=== PATIENT | female | born 1995 | race African-American/Black ===

== ENCOUNTER 2019-10-31 21:09 | Inpatient (IN) | payer SELFPAY ==
[~2019-10-31] VITALS: Ht 157.5 cm; Wt 57.6 kg
[2019-10-31 21:25] VITALS: BP 128/78
[2019-10-31 21:45] LABS: BASOPHILS % (AUTO) 1.3 % (0.0-2.0); HEMATOCRIT 48.3 % (37.0-47.0); HEMOGLOBIN 15.4 G/DL (12.0-16.0); LYMPHOCYTES % (AUTO) 5.9 % (20.0-45.0); MEAN CORPUSCULAR VOLUME 104 FL (80-99); NEUTROPHILS % (AUTO) 88.9 % (45.0-75.0); PLATELET COUNT 251 K/UL (150-450); RED BLOOD COUNT 4.65 M/UL (4.20-5.40); RED CELL DISTRIBUTION WIDTH 10.3 % (11.6-14.8); WHITE BLOOD COUNT 14.4 K/UL (4.8-10.8)
[2019-10-31 21:51] LABS: ANION GAP 21 mmol/L (5-15); BLOOD UREA NITROGEN 11 mg/dL (7-18); CALCIUM 10.2 MG/DL (8.5-10.1); CARBON DIOXIDE 19 MMOL/L (21-32); CHLORIDE 103 MMOL/L (98-107); CREATININE 1.3 MG/DL (0.55-1.30); POTASSIUM 3.9 MMOL/L (3.5-5.1); SODIUM 143 MMOL/L (136-145)
[2019-10-31 21:55] LABS: ALANINE AMINOTRANSFERASE 18 U/L (12-78); ALBUMIN 4.4 G/DL (3.4-5.0); ALBUMIN/GLOBULIN RATIO 1.2 (1.0-2.7); ALKALINE PHOSPHATASE 63 U/L (46-116); ASPARTATE AMINO TRANSFERASE 18 U/L (15-37); BILIRUBIN,TOTAL 0.7 MG/DL (0.2-1.0)
--- NOTE | 2019-10-31 21:59 | Emergency Room Report ---
History of Present Illness General Chief Complaint: Nausea, Vomiting, and Diarrhea Source: Patient Present Illness HPI Patient is a 23-year-old female who presents after increased nausea and vomiting. Patient reports having persistent left upper abdominal pain as well as some chest discomfort and surgery approximately 1 month ago for ovarian cyst removal. Patient states she had surgery on September 26. Had been having persistent vomiting and diarrhea since then. Reports having approximate 30 pound weight loss. Denies any other locations of pain. Reports prior history of anxiety. Allergies: Coded Allergies: LATEX (Verified Allergy, Unknown, 10/31/19) COVID-19 Screening Contact w/high risk pt: No Recent Travel to affected area: No Experienced COVID-19 symptoms?: No COVID-19 Testing performed REGISTERED DIETITIAN: No Patient History Past Medical History: see triage record Last Menstrual Period: 09/26/2019 Now: No Reviewed Nursing Documentation: PMH: Agreed; PSxH: Agreed Review of Systems All Other Systems: negative except mentioned in HPI Physical Exam Vital Signs Date Time Temp Pulse Resp B/P (MAP) Pulse Ox O2 Delivery O2 Flow Rate FiO2 10/31/19 21:15 99.7 110 18 128/78 (95) 97 Room Air Sp02 EP Interpretation: reviewed, normal General Appearance: normal inspection, well appearing, no apparent distress, alert, GCS 15 Head: atraumatic ENT: normal ENT inspection, hearing grossly normal, normal voice Neck: normal inspection, full range of motion, supple, no bony tend Respiratory: normal inspection, lungs clear, normal breath sounds, no respiratory distress, no retraction, no wheezing Cardiovascular #1: regular rate, rhythm, no edema Gastrointestinal: normal inspection, normal bowel sounds, non tender, soft, no guarding, no hernia Genitourinary: no CVA tenderness Musculoskeletal: normal inspection, back normal, normal range of motion Neurologic: alert, motor strength/tone normal, 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 Differential diagnoses included ischemic bowel, appendicitis, perforated viscus, abdominal aortic aneurysm, inferior myocardial infarction, viral gastroenteritis among others.Because patient's complexity imaging studies, and laboratory testing ordered.Laboratory testing showed some metabolic acidosis. Patient's has been having persistent vomiting for several weeks with weight loss approximately 30 pounds. Patient will be admitted for further evaluation and treatment of persistent vomiting and left- sided abdominal pain. Patient's laboratory testing did show some acidosis. test was negative. Dr. Grider was contacted for inpatient management. Dr. Jacoby Quinn will be seeing the patient for CRAPS DEALER consult Labs Test 10/31/19 21:34 White Blood Count 14.4 K/UL (4.8-10.8) Red Blood Count 4.65 M/UL (4.20-5.40) Hemoglobin 15.4 G/DL (12.0-16.0) Hematocrit 48.3 % (37.0-47.0) Mean Corpuscular Volume 104 FL (80-99) Mean Corpuscular Hemoglobin 33.2 PG (27.0-31.0) Mean Corpuscular Hemoglobin Concent 31.9 G/DL (32.0-36.0) Red Cell Distribution Width 10.3 % (11.6-14.8) Platelet Count 251 K/UL (150-450) Mean Platelet Volume 11.1 FL (6.5-10.1) Neutrophils (%) (Auto) 88.9 % (45.0-75.0) Lymphocytes (%) (Auto) 5.9 % (20.0-45.0) Monocytes (%) (Auto) 4.0 % (1.0-10.0) Eosinophils (%) (Auto) 0.0 % (0.0-3.0) Basophils (%) (Auto) 1.3 % (0.0-2.0) Sodium Level 143 MMOL/L (136-145) Potassium Level 3.9 MMOL/L (3.5-5.1) Chloride Level 103 MMOL/L (98-107) Carbon Dioxide Level 19 MMOL/L (21-32) Anion Gap 21 mmol/L (5-15) Blood Urea Nitrogen 11 mg/dL (7-18) Creatinine 1.3 MG/DL (0.55-1.30) Estimat Glomerular Filtration Rate 51.7 mL/min (>60) Glucose Level 107 MG/DL (74-106) Calcium Level 10.2 MG/DL (8.5-10.1) Magnesium Level 1.8 MG/DL (1.8-2.4) Total Bilirubin 0.7 MG/DL (0.2-1.0) Aspartate Amino Transf (AST/SGOT) 18 U/L (15-37) Alanine Aminotransferase (ALT/SGPT) 18 U/L (12-78) Alkaline Phosphatase 63 U/L (46-116) Total Protein 8.2 G/DL (6.4-8.2) Albumin 4.4 G/DL (3.4-5.0) Globulin 3.8 g/dL Albumin/Globulin Ratio 1.2 (1.0-2.7) Lipase 72 U/L (73-393) Last Vital Signs Date Time Temp Pulse Resp B/P (MAP) Pulse Ox O2 Delivery O2 Flow Rate FiO2 10/31/19 21:15 99.7 110 18 128/78 (95) 97 Room Air Status: unchanged Disposition: ADMITTED INPATIENT Condition: Stable Cody Mejia MD Oct 31, 2019 21:59
[2019-10-31] MEDS: HYDROmorphone 1mg/ml Carpuject IVP PRN (22:19)
[2019-10-31 22:30] VITALS: BP 123/69
[2019-10-31 23:01] LABS: APPEARANCE,URINE CLEAR; BILIRUBIN, URINE NEGATIVE (NEGATIVE); COLOR,URINE PALE YELLOW; GLUCOSE, URINE (UA) NEGATIVE (NEGATIVE); KETONES,URINE 4+ (NEGATIVE); LEUKOCYTE ESTERASE ,URINE NEGATIVE (NEGATIVE); NITRITE,URINE NEGATIVE (NEGATIVE); PH,URINE 5 (4.5-8.0); PROTEIN,URINE 2+ (NEGATIVE); UROBILINOGEN,URINE NORMAL MG/DL (0.0-1.0)
[2019-10-31] MEDS: ceFAZolin sod 1 GM in NS 55 ML IVPB SCH (23:51)
[2019-11-01] VITALS: BP 126/73
[2019-11-01] MEDS: Potassium Chloride 20 MEQ in Dextrose 5%/Lactated Ringer's 1,000 ML IV SCH ×4 (00:01→21:03)
[2019-11-01 04:00] VITALS: BP 112/61
[2019-11-01] MEDS: ceFAZolin sod 1 GM in NS 55 ML IVPB SCH ×3 (07:52→23:12)
[2019-11-01 08:00] VITALS: BP 135/79
[2019-11-01 12:00] VITALS: BP 106/74
[2019-11-01] MEDS: DiphenhydrAMINE 50mg/ml Inj IVP PRN ×2 (14:01→20:04)
--- NOTE | 2019-11-01 15:29 | History and Physical ---
Karli Whatley DRYWALL MECHANIC 11/01/19 1529: History of Present Illness General Date patient seen: Nov 01, 2019 Time patient seen: 13:30 Reason for Hospitalization: intractable nausea and vomiting Present Illness HPI 23 years old female with PMH of asthma and ovarian cyst ,status post ovarian cyst removal at age 19 and the second time about a month ago on September 26, presented with persistent nausea and vomiting . Patient also reported occasional diarrhea. Patient reported weight loss. Upon evaluation patient had low-grade fever and was tachycardic. Laboratory work-up revealed leukocytosis WBC 14.4 ,stable hemoglobin , hematocrit and platelet count. Patient prior was tested negative for COVID-19. Stable electrolytes and renal parameters . Anion gap 21 Glucose 107 Stable LFT and lipase. Urinalysis revealed +4 ketones . Urine toxicology screen was positive for marijuana. Patient was complaining of severe itching with analgesics. In emergency department patient received IV fluids, antiemetic, analgesic ,and admitted for further management. Allergies: Coded Allergies: LATEX (Verified Allergy, Unknown, 10/31/19) COVID-19 Screening Contact w/high risk pt: No Recent Travel to affected area: No Experienced COVID-19 symptoms?: No Patient History Healthcare decision maker Resuscitation status Full code Advanced Directive on File Review of Systems Constitutional: Reports: weakness ENT: Reports: no symptoms Respiratory: Reports: no symptoms, other - hx of asthma Cardiovascular: Reports: no symptoms Gastrointestinal: Reports: see HPI Genitourinary: Reports: see HPI Musculoskeletal: Reports: no symptoms Skin: Reports: no symptoms Psychiatric: Reports: no symptoms Neurological: Reports: no symptoms Endocrine: Reports: no symptoms Hematologic/Lymphatic: Reports: no symptoms Physical Exam General Appearance: WD/WN, no apparent distress, alert Lines, tubes and drains: peripheral HEENT: normocephalic, atraumatic, anicteric, mucous membranes moist, PERRL Neck: non-tender, supple Respiratory/Chest: chest wall non-tender, lungs clear, no respiratory distress , no accessory muscle use Cardiovascular/Chest: normal peripheral pulses, normal rate, no JVD Abdomen: normal bowel sounds, non tender, soft Extremities: normal range of motion, no calf tenderness, normal capillary refill Neurologic: no motor/sensory deficits, alert, oriented x 3, responsive Musculoskeletal: normal muscle bulk Last 24 Hour Vital Signs Date Time Temp Pulse Resp B/P (MAP) Pulse Ox O2 Delivery O2 Flow Rate FiO2 11/01/19 08:00 97.4 66 18 135/79 (97) 99 11/01/19 04:00 98.4 60 20 112/61 (78) 98 11/01/19 01:56 98.9 11/01/19 00:22 Room Air 11/01/19 00:00 98.8 60 20 126/73 (90) 98 10/31/19 23:15 98.9 95 20 127/67 98 Room Air 10/31/19 22:49 98.9 10/31/19 22:30 98.9 99 19 123/69 97 Room Air 10/31/19 21:25 98.9 110 18 128/78 97 Room Air 10/31/19 21:15 99.7 110 18 128/78 (95) 97 Room Air Intake and Output 10/31/19 11/01/19 19:00 07:00 Intake Total 2955 ml Balance 2955 ml Intake IV Total 2955 ml # Voids 1 Laboratory Tests Test 10/31/19 21:34 10/31/19 22:37 White Blood Count 14.4 K/UL (4.8-10.8) H Red Blood Count 4.65 M/UL (4.20-5.40) Hemoglobin 15.4 G/DL (12.0-16.0) Hematocrit 48.3 % (37.0-47.0) H Mean Corpuscular Volume 104 FL (80-99) H Mean Corpuscular Hemoglobin 33.2 PG (27.0-31.0) H Mean Corpuscular Hemoglobin Concent 31.9 G/DL (32.0-36.0) L Red Cell Distribution Width 10.3 % (11.6-14.8) L Platelet Count 251 K/UL (150-450) Mean Platelet Volume 11.1 FL (6.5-10.1) H Neutrophils (%) (Auto) 88.9 % (45.0-75.0) H Lymphocytes (%) (Auto) 5.9 % (20.0-45.0) L Monocytes (%) (Auto) 4.0 % (1.0-10.0) Eosinophils (%) (Auto) 0.0 % (0.0-3.0) Basophils (%) (Auto) 1.3 % (0.0-2.0) Sodium Level 143 MMOL/L (136-145) Potassium Level 3.9 MMOL/L (3.5-5.1) Chloride Level 103 MMOL/L (98-107) Carbon Dioxide Level 19 MMOL/L (21-32) L Anion Gap 21 mmol/L (5-15) H Blood Urea Nitrogen 11 mg/dL (7-18) Creatinine 1.3 MG/DL (0.55-1.30) Estimat Glomerular Filtration Rate 51.7 mL/min (>60) Glucose Level 107 MG/DL (74-106) H Calcium Level 10.2 MG/DL (8.5-10.1) H Magnesium Level 1.8 MG/DL (1.8-2.4) Total Bilirubin 0.7 MG/DL (0.2-1.0) Aspartate Amino Transf (AST/SGOT) 18 U/L (15-37) Alanine Aminotransferase (ALT/SGPT) 18 U/L (12-78) Alkaline Phosphatase 63 U/L (46-116) Total Protein 8.2 G/DL (6.4-8.2) Albumin 4.4 G/DL (3.4-5.0) Globulin 3.8 g/dL Albumin/Globulin Ratio 1.2 (1.0-2.7) Lipase 72 U/L (73-393) L Urine Color Pale yellow Urine Appearance Clear Urine pH 5 (4.5-8.0) Urine Specific [place] 1.030 (1.005-1.035) Urine Protein 2+ (NEGATIVE) H Urine Glucose (UA) Negative (NEGATIVE) Urine Ketones 4+ (NEGATIVE) H Urine Blood Negative (NEGATIVE) Urine Nitrite Negative (NEGATIVE) Urine Bilirubin Negative (NEGATIVE) Urine Urobilinogen Normal MG/DL (0.0-1.0) Urine Leukocyte Esterase Negative (NEGATIVE) Urine RBC 0-2 /HPF (0 - 2) Urine WBC 0-2 /HPF (0 - 2) Urine Squamous Epithelial Cells Few /LPF (NONE/OCC) Urine Bacteria None /HPF (NONE) Urine HCG, Qualitative Negative (NEGATIVE) Urine Opiates Screen Negative (NEGATIVE) Urine Barbiturates Screen Negative (NEGATIVE) Phencyclidine (PCP) Screen Negative (NEGATIVE) Urine Amphetamines Screen Negative (NEGATIVE) Urine Benzodiazepines Screen Negative (NEGATIVE) Urine Cocaine Screen Negative (NEGATIVE) Urine Marijuana (THC) Screen Positive (NEGATIVE) H Height (Feet): 5 Height (Inches): 2.00 Weight (Pounds): 127 Medications Current Medications Medications (Trade) Dose Ordered Sig/Robby Route PRN Reason Start Time Stop Time Status Last Admin Dose Admin Albuterol/ Ipratropium (Albuterol/ Ipratropium) 3 ml Q4H PRN HHN Shortness of Breath 11/01/19 14:00 11/06/19 13:59 Cefazolin Sodium 1 gm/Sodium Chloride 55 ml @ 110 mls/hr Q8H IVPB 10/31/19 23:00 11/07/19 22:59 11/01/19 07:52 Diphenhydramine HCl (Benadryl) 25 mg Q6H PRN IVP Itching 11/01/19 14:00 12/01/19 13:59 11/01/19 14:01 Hydromorphone HCl (Dilaudid) 1 mg Q3H PRN IVP Mild Pain (Pain Scale 1-3) 10/31/19 22:00 11/07/19 21:59 10/31/19 22:19 Hydromorphone HCl (Dilaudid) 2 mg Q2H PRN IVP Severe Pain (Pain Scale 7-10) 10/31/19 22:00 11/07/19 21:59 Hydromorphone HCl (Dilaudid) 2 mg Q3H PRN IVP Moderate Pain (Pain Scale 4-6) 10/31/19 22:00 11/07/19 21:59 11/01/19 12:19 Ondansetron HCl (Zofran) 4 mg Q6H PRN IVP Nausea & Vomiting 10/31/19 22:00 11/30/19 21:59 11/01/19 11:37 Potassium Chloride 20 meq/ Dextrose/Lactated Ringer's 1,010 ml @ 150 mls/hr Q6H44M IV 11/01/19 01:00 12/01/19 00:59 11/01/19 07:52 Assessment/Plan Assessment/Plan: ASSESSMENT intractable nausea and vomiting leukocytosis diarrhea s/p recent ovarian cyst removal mild intermittent asthma marijuana user PLAN OF CARE MS floor IVF empiric abx fup with cx repeat UA and CX; pt c/o pyuria stool cx and stool for C dif symptomatic treatment a/emetic as needed pain management antipruritic as needed CL diet for ow and advance as tolerated nausea could also be due to frequent and poor quality of marijuana use counseling director to limit use pulse ox stable on RA no evidence of asthma exacerbation, HHN prn supportive care case discussed and evaluated by supervising physician Duc Gruber MD 11/01/19 2003: History of Present Illness General Reason for Hospitalization: intractable nausea and vomiting Present Illness Allergies: Coded Allergies: LATEX (Verified Allergy, Unknown, 10/31/19) Assessment/Plan Assessment/Plan: Patient seen and examined with DRYWALL MECHANIC. Agree with above A&P as it reflects our joint deliberations. Problem List: * Intractable nausea and vomiting * Leukocytosis * Diarrhea * Recent ovarian cyst removal * Mild intermittent asthma * Marijuana use Plan: * antiemetics * IVF * Abx given leukocytosis * f/u cultures * pain control * discussed potential role of marijuana use as exacerbating factor * Clear liquid diet * nebs prn * encouraged to ambulate Karli Whatley NP Nov 01, 2019 15:29 Duc Gruber MD Nov 01, 2019 20:03
[2019-11-01 16:00] VITALS: BP 112/76
[2019-11-01 16:14] LABS: APPEARANCE,URINE SLIGHTLY CLOUDY; BILIRUBIN, URINE NEGATIVE (NEGATIVE); COLOR,URINE PALE YELLOW; GLUCOSE, URINE (UA) NEGATIVE (NEGATIVE); KETONES,URINE 2+ (NEGATIVE); LEUKOCYTE ESTERASE ,URINE NEGATIVE (NEGATIVE); NITRITE,URINE NEGATIVE (NEGATIVE); PH,URINE 6 (4.5-8.0); PROTEIN,URINE NEGATIVE (NEGATIVE); UROBILINOGEN,URINE NORMAL MG/DL (0.0-1.0)
[2019-11-01 20:00] VITALS: BP 117/73
[2019-11-01] MEDS: Albuterol/Ipratropium 3ml neb HHN PRN (20:29)
[2019-11-01] MEDS ORDERED: Gastrograffin 30ml RECTAL PRN (20:30)
[2019-11-01] MEDS ORDERED: Gastrograffin 30ml ORAL PRN (20:30)
[2019-11-01] MEDS ORDERED: Omnipaque-300 100ml vial INJ PRN (20:30)
[2019-11-02] VITALS: BP 105/61
[2019-11-02] MEDS: HYDROmorphone 1mg/ml Carpuject IVP PRN ×2 (00:26→08:15)
[2019-11-02] MEDS: DiphenhydrAMINE 50mg/ml Inj IVP PRN ×4 (02:11→23:43)
[2019-11-02 04:00] VITALS: BP 110/63
[2019-11-02] MEDS: Potassium Chloride 20 MEQ in Dextrose 5%/Lactated Ringer's 1,000 ML IV SCH ×3 (04:10→18:17)
[2019-11-02] MEDS: ceFAZolin sod 1 GM in NS 55 ML IVPB SCH ×3 (06:18→23:40)
[2019-11-02 07:04] LABS: ANION GAP 9 mmol/L (5-15); BLOOD UREA NITROGEN 2 mg/dL (7-18); CALCIUM 9.1 MG/DL (8.5-10.1); CARBON DIOXIDE 27 MMOL/L (21-32); CHLORIDE 108 MMOL/L (98-107); POTASSIUM 3.3 MMOL/L (3.5-5.1); SODIUM 144 MMOL/L (136-145)
[2019-11-02 07:20] LABS: BASOPHILS % (AUTO) 1.3 % (0.0-2.0); EOSINOPHILS % (AUTO) 1.6 % (0.0-3.0); HEMATOCRIT 37.7 % (37.0-47.0); HEMOGLOBIN 13.3 G/DL (12.0-16.0); LYMPHOCYTES % (AUTO) 26.3 % (20.0-45.0); MEAN CORPUSCULAR VOLUME 95 FL (80-99); MONOCYTES % (AUTO) 7.2 % (1.0-10.0); NEUTROPHILS % (AUTO) 63.5 % (45.0-75.0); PLATELET COUNT 179 K/UL (150-450); RED BLOOD COUNT 3.95 M/UL (4.20-5.40); RED CELL DISTRIBUTION WIDTH 9.2 % (11.6-14.8); WHITE BLOOD COUNT 8.7 K/UL (4.8-10.8)
--- NOTE | 2019-11-02 10:08 | Pulmonology Progress Note ---
Karli Whatley CHEMIST INSTRUMENTATION 11/02/19 1008: Subjective Allergies: Coded Allergies: LATEX (Verified Allergy, Unknown, 10/31/19) Subjective leucocytosis resolved, afebrile still c/o that unable to eat and nausea CT scan abdomen and pelvis pending Objective Last 24 Hour Vital Signs Date Time Temp Pulse Resp B/P (MAP) Pulse Ox O2 Delivery O2 Flow Rate FiO2 11/02/19 08:45 97.8 11/02/19 04:00 97.8 60 19 110/63 (79) 98 11/02/19 00:00 97.9 66 20 105/61 (76) 94 11/01/19 21:00 Room Air 11/01/19 20:30 87 18 97 Room Air 21 11/01/19 20:30 88 18 100 Room Air 21 87 18 97 11/01/19 20:00 98.3 60 19 117/73 (88) 93 11/01/19 16:00 97.8 64 18 112/76 (88) 98 11/01/19 12:00 97.3 66 20 106/74 (85) 98 Intake and Output 11/01/19 11/02/19 19:00 07:00 Intake Total 1810 ml Balance 1810 ml Intake Oral 240 ml IV Total 1570 ml # Voids 2 3 Objective General Appearance: WD/WN, no apparent distress, alert Lines, tubes and drains: peripheral HEENT: normocephalic, atraumatic, anicteric, mucous membranes moist, PERRL Neck: non-tender, supple Respiratory/Chest: chest wall non-tender, lungs clear, no respiratory distress , no accessory muscle use Cardiovascular/Chest: normal peripheral pulses, normal rate, no JVD Abdomen: normal bowel sounds, non tender, soft Extremities: normal range of motion, no calf tenderness, normal capillary refill Neurologic: no motor/sensory deficits, alert, oriented x 3, responsive Musculoskeletal: normal muscle bulk Microbiology Date/Time Source Procedure Growth Status 11/01/19 15:30 Urine,Clean Catch Urine Culture - Preliminary NO GROWTH Resulted Laboratory Tests 11/01/19 15:30: Urine Color Pale yellow, Urine Appearance Slightly cloudy, Urine pH 6, Urine Specific [place] 1.020, Urine Protein Negative, Urine Glucose (UA) Negative, Urine Ketones 2+H, Urine Blood Negative, Urine Nitrite Negative, Urine Bilirubin Negative, Urine Urobilinogen Normal, Urine Leukocyte Esterase Negative , Urine RBC 0, Urine WBC 0-2, Urine Squamous Epithelial Cells Few, Urine Bacteria Few 11/02/19 05:10: White Blood Count 8.7, Red Blood Count 3.95L, Hemoglobin 13.3, Hematocrit 37.7, Mean Corpuscular Volume 95#, Mean Corpuscular Hemoglobin 33.7H, Mean Corpuscular Hemoglobin Concent 35.3, Red Cell Distribution Width 9.2L, Platelet Count 179, Mean Platelet Volume 9.3, Neutrophils (%) (Auto) 63.5, Lymphocytes (% ) (Auto) 26.3, Monocytes (%) (Auto) 7.2, Eosinophils (%) (Auto) 1.6, Basophils ( %) (Auto) 1.3, Sodium Level 144, Potassium Level 3.3L, Chloride Level 108H, Carbon Dioxide Level 27, Anion Gap 9, Blood Urea Nitrogen 2L, Creatinine 1.0, Estimat Glomerular Filtration Rate > 60, Glucose Level 101, Calcium Level 9.1 Current Medications Medications (Trade) Dose Ordered Sig/Robby Route PRN Reason Start Time Stop Time Status Last Admin Dose Admin Albuterol/ Ipratropium (Albuterol/ Ipratropium) 3 ml Q4H PRN HHN Shortness of Breath 11/01/19 14:00 11/06/19 13:59 11/01/19 20:29 Barium Sulfate (Readi-Cat 2) 450 ml NOW PRN ORAL Radiology Procedure 11/01/19 20:30 11/03/19 20:21 Cefazolin Sodium 1 gm/Sodium Chloride 55 ml @ 110 mls/hr Q8H IVPB 10/31/19 23:00 11/07/19 22:59 11/02/19 06:18 Diatrizoate Meglum/ Diatrizoate Sod (Gastrografin) 30 ml NOW PRN ORAL Radiology Procedure 11/01/19 20:30 11/03/19 20:29 Diatrizoate Meglum/ Diatrizoate Sod (Gastrografin) 60 ml NOW PRN RECTAL Radiology Procedure 11/01/19 20:30 11/03/19 20:21 Diphenhydramine HCl (Benadryl) 25 mg Q6H PRN IVP Itching 11/01/19 14:00 12/01/19 13:59 11/02/19 09:14 Hydromorphone HCl (Dilaudid) 1 mg Q3H PRN IVP Mild Pain (Pain Scale 1-3) 10/31/19 22:00 11/07/19 21:59 11/02/19 08:15 Hydromorphone HCl (Dilaudid) 2 mg Q2H PRN IVP Severe Pain (Pain Scale 7-10) 10/31/19 22:00 11/07/19 21:59 11/02/19 06:18 Hydromorphone HCl (Dilaudid) 2 mg Q3H PRN IVP Moderate Pain (Pain Scale 4-6) 10/31/19 22:00 11/07/19 21:59 11/01/19 16:47 Iohexol (OMNIPAQUE-300 100ml) 100 ml NOW PRN INJ Radiology Procedure 11/01/19 20:30 11/03/19 20:21 Ondansetron HCl (Zofran) 4 mg Q6H PRN IVP Nausea & Vomiting 10/31/19 22:00 11/30/19 21:59 11/02/19 05:35 Potassium Chloride 20 meq/ Dextrose/Lactated Ringer's 1,010 ml @ 150 mls/hr Q6H44M IV 11/01/19 01:00 12/01/19 00:59 11/02/19 04:10 Assessment/Plan Assessment/Plan ASSESSMENT intractable nausea and vomiting leukocytosis -resolved diarrhea s/p recent ovarian cyst removal mild intermittent asthma marijuana user PLAN OF CARE [facility] floor IVF empiric abx fup with cx repeat UA and CX; pt c/o pyuria UCX NGTD stool cx and stool for C dif CT A/P today symptomatic treatment a/emetic as needed pain management antipruritic as needed CL diet for now and advance as tolerated nausea could also be due to frequent and poor quality of marijuana use counselor dormitory to limit use and discussed with pt pt is quite adamant that marijuana will not cause these symptoms pt was explained that she is getting CT A/P this amd and if negative/no acute pathology, probably will be dc home and f/up with PCP pulse ox stable on RA no evidence of asthma exacerbation, HHN prn supportive care case discussed and evaluated by supervising physician Duc Gruber MD 11/02/199: Subjective Allergies: Coded Allergies: LATEX (Verified Allergy, Unknown, 10/31/19) Assessment/Plan Assessment/Plan Patient seen and examined with CHEMIST INSTRUMENTATION. Agree with above A&P as it reflects our joint deliberations. Karli Whatley NP Nov 02, 2019 10:08 Duc Gruber MD Nov 02, 2019 21:19
[2019-11-02] MEDS: Albuterol/Ipratropium 3ml neb HHN PRN (11:51)
[2019-11-02 12:00] VITALS: BP 116/69
--- NOTE | 2019-11-02 13:21 | Diagnostic Imaging Report ---
Clinical Indication: Abdominal pain, increased nausea and vomiting, chest discomfort, surgery one month prior Technique: Patient ingested only in limited amount of oral contrast IV administration nonionic contrast. Venous phase spiral acquisition obtained through the abdomen and pelvis. Multiplanar reconstructions were generated. Total dose length product 187 mGycm. CTDIvol(s) 3 mGy. Dose reduction achieved using automated exposure control Comparison: none Findings: There is small amount of free fluid within the pelvis. The right ovary is somewhat indistinct. The uterus is unremarkable. The appendix is not visualized. Surgical staple line at the cecum indicates likely prior appendectomy. No evidence of acute diverticulosis or diverticulitis. No small bowel distention. Ingested contrast reaches the cecum. No free intraperitoneal gas. No small bowel wall thickening. The distal esophagus, stomach, duodenum are unremarkable. The liver, gallbladder, bile ducts, pancreas, spleen, adrenals, kidneys are all unremarkable. No retroperitoneal or mesenteric mass or adenopathy. No pelvic mass or adenopathy. Impression: No definite acute process Free cul-de-sac fluid, most likely physiologic Evidence of prior appendectomy Nonvisualized appendix No definite findings relatable to stated clinical history of prior ovarian cyst removal are demonstrated The CT scanner at [facility] is accredited by the [employer] and the scans are performed using protocols designed to limit radiation exposure to as low as reasonably achievable to attain images of sufficient resolution adequate for diagnostic evaluation.
[2019-11-02 16:00] VITALS: BP 126/90
[2019-11-02 20:00] VITALS: BP 117/68
[2019-11-03] VITALS: BP 111/65
[2019-11-03] MEDS: Potassium Chloride 20 MEQ in Dextrose 5%/Lactated Ringer's 1,000 ML IV SCH ×2 (00:08→11:34)
[2019-11-03 04:00] VITALS: BP 100/57
[2019-11-03] MEDS: ceFAZolin sod 1 GM in NS 55 ML IVPB SCH ×2 (06:27→15:00)
[2019-11-03] MEDS: DiphenhydrAMINE 50mg/ml Inj IVP PRN ×2 (06:36→13:06)
[2019-11-03 08:22] VITALS: BP 113/73
[2019-11-03 09:49] LABS: BASOPHILS % (AUTO) 1.6 % (0.0-2.0); EOSINOPHILS % (AUTO) 2.1 % (0.0-3.0); HEMATOCRIT 43.8 % (37.0-47.0); HEMOGLOBIN 14.6 G/DL (12.0-16.0); LYMPHOCYTES % (AUTO) 36.2 % (20.0-45.0); MEAN CORPUSCULAR VOLUME 101 FL (80-99); MONOCYTES % (AUTO) 6.3 % (1.0-10.0); NEUTROPHILS % (AUTO) 53.8 % (45.0-75.0); PLATELET COUNT 172 K/UL (150-450); RED BLOOD COUNT 4.33 M/UL (4.20-5.40); RED CELL DISTRIBUTION WIDTH 9.2 % (11.6-14.8)
[2019-11-03 10:03] LABS: ANION GAP 11 mmol/L (5-15); BLOOD UREA NITROGEN 1 mg/dL (7-18); CALCIUM 9.5 MG/DL (8.5-10.1); CARBON DIOXIDE 27 MMOL/L (21-32); CHLORIDE 103 MMOL/L (98-107); POTASSIUM 4.1 MMOL/L (3.5-5.1); SODIUM 141 MMOL/L (136-145)
[2019-11-03] MEDS ORDERED: ZOFRAN4 M3 ORAL (10:15)
[2019-11-03] MEDS ORDERED: AUGMENTIN 875-1 EAC1 ORAL (10:15)
--- NOTE | 2019-11-03 10:24 | Pulmonology Progress Note ---
Karli Whatley WEB APPLICATION DEVELOPER 11/03/19 1024: Subjective Allergies: Coded Allergies: LATEX (Verified Allergy, Unknown, 10/31/19) Subjective leucocytosis resolved, afebrile started on soft diet, eats small amounts CT scan abdomen and pelvis no acute findings labs stable Objective Last 24 Hour Vital Signs Date Time Temp Pulse Resp B/P (MAP) Pulse Ox O2 Delivery O2 Flow Rate FiO2 11/03/19 08:22 98.8 59 21 113/73 (86) 98 11/03/19 04:00 98.7 98 18 100/57 (71) 98 11/03/19 00:00 98.4 70 17 111/65 (80) 100 11/02/19 21:00 Room Air 11/02/19 20:00 99.2 73 18 117/68 (84) 100 11/02/19 17:27 98.3 11/02/19 16:00 98.3 67 20 126/90 (102) 98 11/02/19 14:02 98.3 11/02/19 12:01 70 18 100 Room Air 21 63 18 98 11/02/19 12:00 97.7 59 19 116/69 (85) 100 Intake and Output 11/02/19 11/03/19 19:00 07:00 Intake Total 1800 ml 390 ml Balance 1800 ml 390 ml Intake Oral 230 ml 240 ml IV Total 1570 ml 150 ml # Voids 4 3 Objective General Appearance: WD/WN, no apparent distress, alert Lines, tubes and drains: peripheral HEENT: normocephalic, atraumatic, anicteric, mucous membranes moist, PERRL Neck: non-tender, supple Respiratory/Chest: chest wall non-tender, lungs clear, no respiratory distress , no accessory muscle use Cardiovascular/Chest: normal peripheral pulses, normal rate, no JVD Abdomen: normal bowel sounds, non tender, soft Extremities: normal range of motion, no calf tenderness, normal capillary refill Neurologic: no motor/sensory deficits, alert, oriented x 3, responsive Musculoskeletal: normal muscle bulk Microbiology Date/Time Source Procedure Growth Status 11/01/19 15:30 Urine,Clean Catch Urine Culture - Final NO GROWTH AFTER 48 HOURS Complete Laboratory Tests 11/03/19 09:10: White Blood Count 7.0, Red Blood Count 4.33, Hemoglobin 14.6, Hematocrit 43.8, Mean Corpuscular Volume 101H, Mean Corpuscular Hemoglobin 33.8H, Mean Corpuscular Hemoglobin Concent 33.4, Red Cell Distribution Width 9.2L, Platelet Count 172, Mean Platelet Volume 11.7H, Neutrophils (%) (Auto) 53.8, Lymphocytes (%) (Auto) 36.2, Monocytes (%) (Auto) 6.3, Eosinophils (%) (Auto) 2.1, Basophils (%) (Auto) 1.6, Sodium Level 141, Potassium Level 4.1, Chloride Level 103, Carbon Dioxide Level 27, Anion Gap 11, Blood Urea Nitrogen 1L, Creatinine 1.0, Estimat Glomerular Filtration Rate > 60, Glucose Level 89, Calcium Level 9.5 Current Medications Medications (Trade) Dose Ordered Sig/Robby Route PRN Reason Start Time Stop Time Status Last Admin Dose Admin Albuterol/ Ipratropium (Albuterol/ Ipratropium) 3 ml Q4H PRN HHN Shortness of Breath 11/01/19 14:00 11/06/19 13:59 11/02/19 11:51 Barium Sulfate (Readi-Cat 2) 450 ml NOW PRN ORAL Radiology Procedure 11/01/19 20:30 11/03/19 20:21 Cefazolin Sodium 1 gm/Sodium Chloride 55 ml @ 110 mls/hr Q8H IVPB 10/31/19 23:00 11/07/19 22:59 11/03/19 06:27 Diatrizoate Meglum/ Diatrizoate Sod (Gastrografin) 30 ml NOW PRN ORAL Radiology Procedure 11/01/19 20:30 11/03/19 20:29 Diatrizoate Meglum/ Diatrizoate Sod (Gastrografin) 60 ml NOW PRN RECTAL Radiology Procedure 11/01/19 20:30 11/03/19 20:21 Diphenhydramine HCl (Benadryl) 25 mg Q6H PRN IVP Itching 11/01/19 14:00 12/01/19 13:59 11/03/19 06:36 Hydromorphone HCl (Dilaudid) 1 mg Q3H PRN IVP Mild Pain (Pain Scale 1-3) 10/31/19 22:00 11/07/19 21:59 11/02/19 08:15 Hydromorphone HCl (Dilaudid) 2 mg Q2H PRN IVP Severe Pain (Pain Scale 7-10) 10/31/19 22:00 11/07/19 21:59 11/03/19 08:59 Hydromorphone HCl (Dilaudid) 2 mg Q3H PRN IVP Moderate Pain (Pain Scale 4-6) 10/31/19 22:00 11/07/19 21:59 11/02/19 14:32 Iohexol (OMNIPAQUE-300 100ml) 100 ml NOW PRN INJ Radiology Procedure 11/01/19 20:30 11/03/19 20:21 Ondansetron HCl (Zofran) 4 mg Q6H PRN IVP Nausea & Vomiting 10/31/19 22:00 11/30/19 21:59 11/03/19 06:36 Potassium Chloride 20 meq/ Dextrose/Lactated Ringer's 1,010 ml @ 150 mls/hr Q6H44M IV 11/01/19 01:00 12/01/19 00:59 11/03/19 00:08 Assessment/Plan Assessment/Plan ASSESSMENT intractable nausea and vomiting with abd pain -improved Leukocytosis -resolved diarrhea stopped s/p recent ovarian cyst removal mild intermittent asthma marijuana user PLAN OF CARE MS floor IVF empiric abx UCX NGTD stool cx and stool for C dif not done, diarrhea stooped CT A/P - no acute intraabdominal process labs stable: no leukcoytosis, no fevers symptomatic treatment a/emetic as needed pain management diet advanced to soft , eats small amount nausea could also be due to frequent and poor quality of marijuana use risk reduction counselor to limit use and discussed with pt pt is quite adamant that marijuana will not cause these symptoms pulse ox stable on RA no evidence of asthma exacerbation, HHN prn patient was explained as well as her mother ( over the phone, after getting eprmission from the patient) that no causes of abd pain/nausea were identified stable imaging and labs patient was advised to fup with [facility] ( where she had a surgery for ovarian cysr removal) for further management per patient she was there before and nothing was found patient applied for insurance, awaiting for [employer] insurance patient was strongly advised to fup with [facility] all her records are until she gets insurance scripts for antibiotic and antiemetic was e-transmitted to her preferred pharmacy [facility] at [place] , [place] [phone] case discussed and evaluated by supervising physician Duc Gruber MD 11/03/19 1630: Subjective Allergies: Coded Allergies: LATEX (Verified Allergy, Unknown, 10/31/19) Assessment/Plan Assessment/Plan Patient seen and examined with WEB APPLICATION DEVELOPER. Agree with above A&P as it reflects our joint deliberations. Karli Whatley NP Nov 03, 2019 10:24 Duc Gruber MD Nov 03, 2019 16:30
[2019-11-03 12:00] VITALS: BP 106/63
[2019-11-03] MEDS: Albuterol/Ipratropium 3ml neb HHN PRN (12:19)
[2019-11-03] MEDS ORDERED: DiphenhydrAMINE 25mg Tab ORAL PRN (16:30)
[2019-11-03] MEDS ORDERED: Potassium Chloride 20 MEQ in Dextrose 5%/Lactated Ringer's 1,000 ML IV SCH (18:00)
[2019-11-03] MEDS ORDERED: HYDROmorphone 1mg/ml Carpuject IVP PRN (19:00)
--- NOTE | 2019-11-06 16:56 | Discharge Summary ---
Discharge Summary Discharge Summary _ DATE OF ADMISSION: 10/31/2019 DATE OF DISCHARGE: 11/03/2019 DISCHARGED BY: Dr. Gruber REASON FOR ADMISSION: 23 years old female with past medical history of mild intermittent asthma, who undergone ovarian cyst removal about a month ago at [facility] , presented with persistent left upper abdominal pain with nausea and vomiting. Patient reported that she lost some weight. She also reported history of anxiety. Upon evaluation patient was tachycardic with heart rate 110 and had low-grade fever 99.7. Laboratory work-up revealed leukocytosis WBC 14.4, hemoglobin 15.4 , hematocrit 48.3 , platelet count 251. Stable electrolytes. BUN 11, creatinine 1.3. Magnesium 1.8. Stable LFT and lipase. Patient undergone CT scan of the abdomen and pelvis , which revealed no definite acute process. Evidence of prior appendectomy. No definite findings related to stated clinical history of prior ovarian cyst removals were demonstrated. In emergency department patient received IV fluids, analgesic, antiemetic and admitted for further management. HOSPITAL COURSE: Patient admitted to medical surgical floor. Patient started on IV fluids and empiric antibiotics. Patient complained of dysuria. Urine culture was negative. Stool culture and stool for C. difficile were ordered. Diarrhea resolved the same day. Stool culture was not collected. Leukocytosis resolved the next day. Patient had no further fevers, except initial on admission low-grade fever of 99.7. Urine toxicology screen was positive for marijuana. Symptomatic treatment provided. Pain management was addressed. Antiemetic provided as needed. Patient started on clear liquid diet and was slowly advanced as tolerated. Patient was advised that nausea could also be related to frequent and poor quality of marijuana use . Patient was quite adamant that marijuana will not cause the symptoms. Patient was counseled to limit use of marijuana. Pulse oximetry remained stable on room air. Nebulizing treatment was on board as needed. No evidence of asthma exacerbation. Supportive care provided. Diet was advanced to soft, and patient was able to eat small amounts at a time without nausea,, vomiting or abdominal pain. Patient was explained as well as her mother over the phone, after getting permission from the patient , that no causes for abdominal pain and nausea were identified. Imaging and labs were stable. Patient was advised to follow-up with [facility], where she had a surgery for ovarian cyst removal, for further management. Patient reported that she was there before coming to [facility] and nothing was found. Patient was applied for insurance and was waiting for [employer] insurance approval. Patient was strongly advised to follow-up with [facility] , where all her pertinent medical records are , until she gets her insurance . Prescription for antibiotic and antiemetic was e-transmitted to her preferred pharmacy- at [facility]. Also spoke with pharmacist to verify receipt of e- transmission. Patient was stabilized and ready for discharge home. FINAL DIAGNOSES: Intractable nausea and vomiting Leukocytosis- resolved Diarrhea-resolved Status post recent ovarian cyst removal Mild intermittent asthma Marijuana use DISCHARGE MEDICATIONS: See Medication Reconciliation list. DISCHARGE INSTRUCTIONS: Patient was discharged home. Patient was strongly advised to follow-up with [facility] clinic. Karli Whatley NP Nov 06, 2019 16:56
== END 2019-11-03 16:00 | disposition home or self-care (01) | DRG 392 ==
LOC: EMR 22:00 → EDBEDREQ 22:07 → 3E 22:10
DX: R11.2 Nausea with vomiting, unspecified (principal); R19.7 Diarrhea, unspecified; J45.909 Unspecified asthma, uncomplicated; F12.90 Cannabis use, unspecified, uncomplicated; R10.9 Unspecified abdominal pain; Z91.040 Latex allergy status
CPT/HCPCS: 36415; 74177; 80048; 80053; 80307; 81001; 81003; 81025; 83690; 83735; 85025; 87086; 94640; 94664; 96361; 96374; 99285; J2405; J7030; J7620